=== PATIENT | female | born 1965 | race Caucasian/White ===

== ENCOUNTER → 2019-01-30 | Emergency (ER) | payer MEDICAID, OTHER ==
[~2019-01-30] VITALS: Ht 162.6 cm; Wt 71.1 kg
[~2019-01-30] MED LIST: ALBU18HF INHALATION; ALBUTEROL 0.083% (NEB) 2.5 MG/3 ML AMP HHN STA; IPRATROPIUM (NEB) 0.5 MG/2.5 ML AMP HHN ONE; PRED20TA PO; predniSONE 20 MG TAB PO ONE
[2019-01-30 03:21] VITALS: Ht 162.6 cm; Wt 71.1 kg
--- NOTE | 2019-01-30 04:24 | ERD ---
ER Documentation Chief Complaint Chief Complaint C/O SOB ON AND OFF SOB X35 YEARS, STATES ON AND OFF ALOC X30 YEARS HPI Patient is a 53-year-old female with asthma and psychiatric disorders who presents with "breathing problems". She said that she is wheezing and has a history of asthma. She has had no treatment as of yet. She denies suicidal or homicidal ideation. Upon review of old medical records this is the patient's third visit to the ER since 2007. She does not currently have a primary doctor. ROS All systems reviewed and are negative except as per history of present illness. Medications Home Meds Active Scripts Prednisone* (Prednisone*) 20 Mg Tab, 60 MG PO DAILY for 4 Days, TAB Prov:LAZ BATRES MD 01/30/19 Albuterol Sulfate* (Ventolin HFA*) 18 Gm Hfa.aer.ad, 2 PUFF INHALATION Q4H, #1 INHALER Prov:LAZ BATRES MD 01/30/19 Allergies Allergies: Coded Allergies: No Known Drug Allergies (Verified Allergy, Mild, 02/23/10) PMhx/Soc Medical and Surgical Hx: pt denies Medical Hx, pt denies Surgical Hx History of Surgery: No Anesthesia Reaction: No Hx Neurological Disorder: No Hx Respiratory Disorders: No Hx Cardiac Disorders: No Hx Psychiatric Problems: No Hx Miscellaneous Medical Probl: No Hx Alcohol Use: No Hx Substance Use: No Hx Tobacco Use: Yes Smoking Status: Current every day smoker FmHx Family History: No diabetes Physical Exam Vitals Vital Signs Date Temp Pulse Resp B/P (MAP) Pulse Ox O2 O2 Flow FiO2 Time Delivery Rate 01/30/19 95 20 93 21 03:48 01/30/19 97.5 106 22 140/82 91 Room Air 03:31 (101) 01/30/19 97.5 116 22 134/78 94 03:21 (96) Physical Exam Const: No acute distress Head: Atraumatic Eyes: Normal Conjunctiva ENT: Normal External Ears, Nose and Mouth. Neck: Full range of motion. No meningismus. Resp: Diffuse expiratory wheezing without accessory muscle use Cardio: Tachycardic rate without murmur Abd: Soft, non tender, non distended. Normal bowel sounds Skin: No petechiae or rashes Back: No midline or flank tenderness Ext: No cyanosis, or edema Neur: Awake and alert Psych: Normal Mood and Affect Results 24 hrs Current Medications Medications Dose Sig/Lisha Start Time Status Last (Trade) Ordered Route PRN Stop Time Admin Dose Reason Admin Albuterol 5 mg ONCE STAT 01/30/19 DC 01/30/19 (Proventil HHN 03:29 01/30/19 03:46 0.083% (Neb)) 03:31 Ipratropium 0.5 mg ONCE ONCE 01/30/19 DC 01/30/19 [facility] 03:30 01/30/19 03:46 (Atrovent 03:31 0.02% (Neb)) Prednisone 60 mg ONCE ONCE 01/30/19 DC 01/30/19 (Prednisone) PO 03:30 01/30/19 04:22 03:31 Procedures/MDM EKG read by me: Rate/Rhythm: Sinus tachycardia rate of 113 Intervals: Normal Impression: Sinus tachycardia without ischemia Chest X-ray 1V Interpreted by me: Soft Tissue: No acute abnormalities Bones: No acute abnormalities Mediastinum/Cardiac Silhouette/Lungs: No acute abnormalities Smoking Cessation Therapy: Pt. was lectured for greater than 3 minutes on the health risks of continued smoking and the benefits of cessation. Patient is a 53-year-old female with asthma who presents with asthma exacerbation. She is wheezing. She was given albuterol and Atrovent as well as prednisone. She feels better. She will be discharged with a prescription for prednisone and Ventolin inhaler. I do not believe she requires further work-up or admission in the hospital at this time. I doubt pneumonia, pneumothorax, pulmonary embolism, or aortic dissection. Chest x-ray shows no pneumonia or pneumothorax. Departure Diagnosis: Primary Impression: Asthma Asthma severity: unspecified severity Asthma persistence: unspecified Asthma complication type: with acute exacerbation Qualified Codes: J45.901 - Unspecified asthma with (acute) exacerbation Condition: Fair Patient Instructions: Asthma, Acute (Adult) Referrals: [facility] YOU HAVE RECEIVED A MEDICAL SCREENING EXAM AND THE RESULTS INDICATE THAT YOU DO NOT HAVE A CONDITION THAT REQUIRES URGENT TREATMENT IN THE EMERGENCY DEPARTMENT. FURTHER EVALUATION AND TREATMENT OF YOUR CONDITION CAN WAIT UNTIL YOU ARE SEEN IN YOUR DOCTORS OFFICE WITHIN THE NEXT 1-2 DAYS. IT IS YOUR RESPONSIBILITY TO MAKE AN APPOINTMENT FOR FOLOW-UP CARE. IF YOU HAVE A PRIMARY DOCTOR --you should call your primary doctor and schedule an appointment IF YOU DO NOT HAVE A PRIMARY DOCTOR YOU CAN CALL OUR PHYSICIAN REFERRAL HOTLINE AT IF YOU CAN NOT AFFORD TO SEE A PHYSICIAN YOU CAN CHOSE FROM THE FOLLOWING [facility] [address] [facility] [address] [facility] [address] [facility] [address] [facility] [address] [facility]. [facility]. [address] Additional Instructions: Call your primary care doctor TOMORROW for an appointment during the next 1-2 days.See the doctor sooner or return here if your condition worsens before your appointment time. LAZ BATRES MD January 30, 2019 04:23
[2019-01-30 06:03] VITALS: BP 136/80; PULSE 95; RESP 22
== END | disposition home or self-care (01) ==
LOC: E/R 03:18
DX: J45.901 Unspecified asthma with (acute) exacerbation (principal); F17.210 Nicotine dependence, cigarettes, uncomplicated
CPT/HCPCS: 71045; 93005; 94664; J7512; Z7502; Z7610